=== PATIENT | male | born 1980 | race Hispanic/Latino ===

== ENCOUNTER 2018-04-21 06:45 | Day surgery (SDC) | payer OTHER ==
[2018-04-09 13:46] VITALS: BMI 24.3
[2018-04-21] MEDS ORDERED: Lidocaine 2% Jelly (5 ml) TOP ONE (07:25)
[2018-04-21] MEDS ORDERED: Midazolam 2 MG/2 ML VIAL ONE (07:25)
[2018-04-21] MEDS ORDERED: Lidocaine 1% 5ml Abboject ONE (07:25)
[2018-04-21] MEDS ORDERED: Propofol 10 mg/ml Inj (20 ML) ONE (07:25)
[2018-04-21] MEDS ORDERED: Sevoflurane - Inhalation Anesthetic Liq (250 ml) ONE (07:25)
[2018-04-21] MEDS ORDERED: Succinylcholine 200 mg/10 ml Inj IV ONE (12:16)
[2018-04-21] MEDS ORDERED: Lidocaine 4% (Laryng-O-Jet) Kit MM ONE (12:16)
[2018-04-21] MEDS ORDERED: Rocuronium 10 mg/ml (5 ml) ONE (12:16)
[2018-04-21] MEDS ORDERED: Gentamicin 80 mg/2mL Inj. ONE ×2 (12:19→12:28)
[2018-04-21] MEDS ORDERED: Lidocaine 2% PF (10 ml) Amp ONE (12:19)
[2018-04-21] MEDS ORDERED: Bupivacaine HCl 0.25% PF (30 ml) Inj ONE (12:20)
[2018-04-21] MEDS ORDERED: Gentamicin IV 80mg/50ml NS(PREMIX) IVPB ONE (12:31)
[2018-04-21] MEDS ORDERED: Lactated Ringer's 1,000 ML IV ONE ×2 (12:35→13:30)
[2018-04-21] MEDS: ceFAZolin IV 2 gm in Dextrose 2 GM/50 ML BAG IVPB ONE ×2 (12:45→13:26)
[2018-04-21] MEDS ORDERED: Phenylephrine 10 mg/ml Inj ONE (12:56)
[2018-04-21] MEDS ORDERED: LIDOCAINE 2% 10ML 20 MG/ML VIAL IJ ONE (12:58)
[2018-04-21] MEDS ORDERED: Bupivacaine HCl 0.25% PF (30 ml) Inj IJ ONE (12:58)
[2018-04-21] MEDS ORDERED: Sodium Chloride 0.9% 500 ML IV ONE (13:00)
[2018-04-21] MEDS ORDERED: Lactated Ringer's 500 ML IV ONE (15:10)
[2018-04-21] MEDS ORDERED: Lactated Ringer's 1,000 ML IV SCH (15:15)
--- NOTE | 2018-04-21 15:19 | PCM.SURG1 ---
Surgeon's Initial Post Op Note - Surgeon's Notes Surgeon: Dr. Chaidez Office Assistant: Dr. Aguirre Type of Anesthesia: General Endo Anesthesia Administered By: Dr. Fitzpatrick Pre-Operative Diagnosis: Varicocele, Low sperm count Operative Findings: See opertive report Post-Operative Diagnosis: Same Operation Performed: b/l Varicocelectomy Specimen/Specimens Removed: b/l cord lipomas Estimated Blood Loss: EBL {In ML}: 10 Blood Products Given: N/A Drains Used: No Drains Post-Op Condition: Good Date of Surgery/Procedure: 04/21/18 Time of Surgery/Procedure: 15:21
[2018-04-21 16:29] VITALS: O2SAT 100
[2018-04-21 17:00] VITALS: RESP 18
[2018-04-21 18:43] VITALS: BP 108/67; PULSE 68; TEMP 97.2
--- NOTE | 2018-04-22 08:35 | OP ---
PROCEDURE DATE: 04/21/2018 INDICATIONS FOR SURGERY: Mr. 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 He was found to have bilateral varicoceles on ultrasound examination and on physical examination, given these findings taken to the operating room for correction of his varicocelectomies in the hope that we can improve his chances of having natural paternity. PREOPERATIVE DIAGNOSES: Bilateral varicocele, male infertility. POSTOPERATIVE DIAGNOSES: Bilateral varicocele, male infertility, bilateral lipoma of the spermatic cord. PROCEDURES: Microscopic varicocelectomy bilateral, excision of lipoma of the cord bilateral. ESTIMATED BLOOD LOSS FOR THE PROCEDURE: Minimal. ANESTHESIA: General. SURGEON: Matheus Chaidez MD. OPERATIVE DETAILS: The patient was brought to the operating room, placed in supine position. General anesthesia was administered. We then prepped and draped the patient in the usual sterile fashion. Called a time-out, verifying the patient name, procedure, antibiotics, and allergies. We proceeded to gómez off a line overlying the external inguinal ring about the right and left side. Local anesthesia was infiltrated in this vicinity using combination of 0.25% Marcaine and 2% lidocaine without epinephrine. Once this was completed, we made an incision on both sides through the skin and subcutaneous tissues to expose the Michael's fascia. The Michael's fascia was entered and the spermatic cord was identified. The spermatic cord was then very relatively mobilized from the surrounding tissues and encircled with a quarter-inch [place] drain. This was done both on the right and left side. We then turned our attention to the left side, opened the cremasteric fascia of the spermatic cord and exposed the cord very carefully and painstakingly we dissected the cord until we identified the spermatic artery. This was identified both visually palpating as well as using the oscillator probe. This artery was identified by passing a vessel loop underneath it and the remainder of the dissection was done with this artery protected. We identified four spermatic veins on this side. We were able to dissect them free and doubly ligate and cut them. Once there was no further , the vein was identified on the left side. We tacked the incision with a moist sponge and turned our attention to the right side, in the similar fashion opened up the cremasteric fascia and examined the cord on the right side and the spermatic artery was not visually identifiable; however, using the Doppler probe I was ultimately able to identify the artery and it from the remaining structures in the cord. Micro vessel loop was passed underneath the artery in order to protect it during the duration of the dissection. The veins were identified, doubly ligated and on the right side we identified internal spermatic veins which were ligated doubly and cut. Once this was completed, we irrigated the wound and any bleeding that was identified was controlled with electrocautery. Excellent hemostasis was achieved. We then proceeded to close both the right and left side using 2-0 Vicryl to close the Michael's fascia and using 4-0 Monocryl to close the skin. Dermabond was applied to the skin and Steri-Strips were applied over the Dermabond. At this point, scrotal support with a fluff was applied to the patient. The patient was awakened from anesthesia and transferred to the recovery room in very calm and stable condition. The patient will follow up in the office in three months at which time the semen analysis will be performed to identify whether the semen analysis has improved following the microscopic varicocelectomy. To be clear, I explained to the patient and to his that the chances of microscopic varicocelectomy helping this case was approximately 40% based on the current evidence-based literature. Matheus Chaidez M.D.
== END 2018-04-21 18:50 | disposition home or self-care (01) ==
LOC: H.OPSURG 06:45
PROVIDERS: ATTEND Urology
DX: I86.1 Scrotal varices (principal); D17.6 Benign lipomatous neoplasm of spermatic cord; N46.9 Male infertility, unspecified
CPT/HCPCS: 55530; 88305; J0330; J0690; J1580; J1885; J2250; J2370; J2704; J2765; J3010; J7030; J7120